=== PATIENT | female | born 1960 | race African-American/Black ===

== ENCOUNTER 2025-02-25 15:28 | Emergency (ER) | payer OTHER ==
[~2025-02-25] VITALS: Ht 160 cm; Wt 65.0 kg
[2025-02-25] MEDS ORDERED: IOPAMIDOL 370 MG/ML 100 ML INFUS..BTL INJ ONE (16:21)
[2025-02-25] MEDS: Morphine 4mg INJECTION 4 MG/ML INJ IV ONE (16:51)
[2025-02-25 21:06] VITALS: BP 139/72; PULSE 64; RESP 18; TEMP 97.9
[2025-02-25 21:11] VITALS: PULSE 64; RESP 18; TEMP 97.9; O2SAT 97
== END 2025-02-25 21:15 | disposition other institution (70) ==
LOC: FSED 15:53
DX: R10.31 Right lower quadrant pain (principal); I71.43 Infrarenal abdominal aortic aneurysm, without rupture; K76.0 Fatty (change of) liver, not elsewhere classified
CPT/HCPCS: 74177; 80053; 81003; 85025; 99284; J2270; Q9967